=== PATIENT | female | born 1955 | race Caucasian/White ===

== ENCOUNTER 2025-03-15 16:32 | Inpatient (IN) ==
[2025-03-15 17:14] LABS: Hematocrit (blood only) 46.7 % (37.0-47.0); Hemoglobin 16.5 g/dl (12.0-16.0); Immature Granulocytes # (auto) 0.08 K/uL (0.01-0.20); Immature Granulocytes % (auto) 0.5 %; Mean Corpuscular Hemoglobin 29.0 pg (25.0-34.0); Mean Corpuscular Volume 82.2 fL (80.0-100.0); Platelet Count 357 K/uL (130-400); RDW Standard Deviation 36.0 fL (36.4-46.3); Red Blood Count 5.68 M/uL (4.20-5.40); White Blood Count 16.97 K/ul (4.8-10.8)
[2025-03-15 17:41] LABS: Alanine Aminotransferase 22.0 U/L (7-52); Albumin Globulin Ratio 1.0 (0.9-2); Albumin Level 4.0 gm/dl (3.4-5.0); Alkaline Phosphatase 131.0 U/L (34-104); Anion Gap 11.0 (3-11); Bilirubin,Total 0.7 mg/dl (0.2-1.0); Blood Urea Nitrogen 42.0 mg/dl (6-23); Calcium 10.0 mg/dl (8.6-10.3); Carbon Dioxide 42.0 mmol/L (21-32); Chloride 83.0 mmol/L (98-107); Creatinine Clr Calc Pharmacy 24.9 ml/min; Globulin 4.2 gm/dl (2.5-4.0); Glucose 151.0 mg/dl (70-99(Fasting)); Potassium 2.1 mmol/L (3.5-5.1); Sodium 136.0 mmol/L (136-145); Total Protein 8.2 gm/dl (6.0-8.3)
[2025-03-15 17:44] LABS: INR 1.0 (0.9-1.1); Partial Thromboplastin Time 22 Seconds (21-31); Prothrombin Time 10.4 Seconds (9.0-12.0)
[2025-03-15 18:03] LABS: Chlamydia pneumoniae PCR Not Detected (NotDetected); Coronavirus 229E PCR Not Detected (NotDetected); Coronavirus CoV-2 (COVID19)PCR Not Detected (NotDetected); Coronavirus HKU1 PCR Not Detected (NotDetected); Coronavirus NL63 PCR Not Detected (NotDetected); Coronavirus OC43PCR Not Detected (NotDetected); Human Metapneumovirus PCR Not Detected (NotDetected); Parainfluenza Virus 1 PCR Not Detected (NotDetected); Parainfluenza Virus 2 PCR Not Detected (NotDetected); Parainfluenza Virus 3 PCR Not Detected (NotDetected); Parainfluenza Virus 4 PCR Not Detected (NotDetected); Respiratory Syncytial VirusPCR Not Detected (NotDetected); Rhinovirus/Enterovirus PCR Not Detected (NotDetected)
--- NOTE | 2025-03-15 19:08 | XRay Report ---
Clinical History: Chest pain Technique: A frontal view of the chest was obtained Findings: There are no confluent pulmonary infiltrates. The heart size is within normal limits. No pleural effusion or pneumothorax is seen. There are suspected small calcified pulmonary granulomas No fracture is noted. There is thoracic degenerative disc disease Impression: No active disease Electronically signed by Robinson Patel 03-15-2025 7:08 PM
[2025-03-15] MEDS: SODIUM CHLORIDE 0.9% 1,000 ML IV ONE (19:36)
[2025-03-15] MEDS: POTASSIUM CHLORIDE / WTR 10 MEQ/100 ML PLCT IV SCH (19:36)
[2025-03-15] MEDS: POTASSIUM CHLORIDE CRTAB 20 MEQ TABCR PO STA (19:38)
--- NOTE | 2025-03-15 20:10 | Emergency Department Note ---
Impression & Plan Acute kidney injury, Hypokalemia, Acute dyspnea ED Provider Note NAME: DIANE CARLIN AGE: 69 SEX: F : 1955 ARRIVES VIA: Walk-In INFORMANT: Patient, ED PROVIDER(S): Binh Omalley MD CHIEF COMPLAINT: Diarrhea, shortness of breath HPI: This is a 69-year-old female presents for shortness of breath and diarrhea. Patient has shortness of breath over the past 1 month, intermittently. She notes this is fairly improving over the past few days but occasionally has shortness of breath. No chest pain at this time. No pleurisy. She does have exertional symptoms. She has noted constipation previously and took mag citrate over the past few days. She has been drinking copious bouts of water, Gatorade potassium supplementation over the past 1 to 2 weeks. She reports no nausea or vomiting. ROS: See above HPI for pertinent positives & negatives. A total of 10 systems reviewed and were otherwise negative. PAST MEDICAL HISTORY: See Below PAST SURGICAL HISTORY: See Below FAMILY HISTORY: See Below SOCIAL HISTORY: See Below HOME MEDICATIONS: See Below ALLERGIES: See Below VITALS: See Below PHYSICAL EXAMINATION: General: resting comfortably in no acute distress Head: Normocephalic and atraumatic Eyes: Normal inspection, extraocular muscles intact Ear, nose, throat: Normal external exam Neck: Normal range of motion Respiratory: lungs clear to auscultation bilaterally Cardiovascular: Regular rate/rhythm, no murmur GI: soft, nontender, no guarding or rebound Extremities: nontender, moves all extremities Neuro: The patient awake and alert, appropriately conversive, no focal deficits, symmetric faces Skin: Warm, dry, and intact MEDICAL DECISION MAKING: This is a 69-year-old female present for shortness of breath and diarrhea. Patient has shortness of breath but is since improving. Patient noted recent change in her blood pressure medication. She otherwise has been drinking water, Gatorade and supplementation. She notes diarrhea after taking magnesium citrate. -Chest Xray independently interpreted by me showing no pneumothorax, focal opacity, or pleural effusions. - Blood was ordered at triage. This shows leukocytosis to almost 17. She has a creatinine elevation 2.15, previous baseline is 1.1. Calcium is critical low at 2.1 she also has an elevated CO2. Troponin negative - Patient otherwise appears clinically well on physical exam, no significant tenderness, does not appear septic. - Will replete fluids, potassium. - Care discussed with Dr. Izquierdo for admission, hypokalemia, rehydration, PARRIS Differential diagnosis: Pneumonia, CHF, PARRIS, dehydration, gastroenteritis Diagnostics interpreted by me: ECG: None Cardiac Monitoring: An order was placed for continuous cardiac monitoring. The monitor shows a rate of 70 with sinus rhythm. Past Med/Surg History Problem List (Updated 03/15/25 @ 20:47 by Binh Omalley MD) Acute dyspnea (Acute) Hypokalemia (Acute) Acute kidney injury (Acute) Social History Smoking Status: Never smoker Preferred Language: Italian Feels Safe at Home: Yes Results & Data (ED) Vital Signs Vital Signs - 24 hr 03/15/25 16:36 03/15/25 19:26 03/15/25 19:26 Temperature 36.3 C L Temperature Source Oral Pulse Rate 79 84 Pulse Rate [Apical] 82 Pulse Rhythm Regular Pulse Rhythm [Apical] Regular Respiratory Rate 18 20 20 Respiratory Effort / Characteristics Non-Labored Spontaneous Non-Labored Respiratory Depth Normal Normal Respiratory Pattern Regular Regular Blood Pressure 160/79 H Blood Pressure [Left Arm] 146/96 H Blood Pressure Mean 106 Blood Pressure Mean [Left Arm] 112 Pulse Oximetry 94 94 92 Oxygen Delivery Method Room Air Room Air Oxygen Flow Rate Sepsis Recent Fever Within 48 Hours No Sepsis New/Unexplained Change in Mental Status No Sepsis Action Taken by Nursing No Action Required 03/15/25 19:28 03/15/25 20:16 Temperature Temperature Source Pulse Rate 70 Pulse Rate [Apical] Pulse Rhythm Pulse Rhythm [Apical] Respiratory Rate Respiratory Effort / Characteristics Respiratory Depth Respiratory Pattern Blood Pressure Blood Pressure [Left Arm] Blood Pressure Mean Blood Pressure Mean [Left Arm] Pulse Oximetry 95 Oxygen Delivery Method Room Air Oxygen Flow Rate 0 Sepsis Recent Fever Within 48 Hours Sepsis New/Unexplained Change in Mental Status Sepsis Action Taken by Nursing Laboratory Data 03/15/25 17:00 03/15/25 17:00 Lab Results 03/15/25 03/15/25 Range/Units 17:00 Unknown WBC 16.97 H (4.8-10.8) K/ul RBC 5.68 H (4.20-5.40) M/uL Hgb 16.5 H (12.0-16.0) g/dl Hct 46.7 (37.0-47.0) % MCV 82.2 (80.0-100.0) fL MCH 29.0 (25.0-34.0) pg MCHC 35.3 (32.0-36.0) g/dL RDW Std Deviation 36.0 L (36.4-46.3) fL RDW Coeff of Lakesha 12.0 (11.5-14.5) % Plt Count 357 (130-400) K/uL MPV 12.1 (9.4-12.4) fL Immature Gran % (Auto) 0.5 % Neut % (Auto) 78.3 % Lymph % (Auto) 12.9 % [place] % (Auto) 7.7 % Eos % (Auto) 0.2 % Baso % (Auto) 0.4 % Neut # (Auto) 13.31 H (1.40-6.50) K/uL Lymph # (Auto) 2.19 (1.20-3.40) K/uL [place] # (Auto) 1.30 H (0.11-0.59) K/uL Eos # (Auto) 0.03 (0.00-0.50) K/uL Baso # (Auto) 0.06 (0.00-0.20) K/uL Immature Gran # (Auto) 0.08 (0.01-0.20) K/uL PT 10.4 (9.0-12.0) Seconds INR 1.0 (0.9-1.1) APTT 22 (21-31) Seconds PTT Ratio 0.8 Sodium 136 (136-145) mmol/L Potassium 2.1 L* (3.5-5.1) mmol/L Chloride 83 L (98-107) mmol/L Carbon Dioxide 42 H* (21-32) mmol/L Anion Gap 11 (3-11) BUN 42 H (6-23) mg/dl Creatinine 2.15 H (0.6-1.2) mg/dl Est Cr Clr Drug Dosing 24.9 ml/min eGFR 24.04 BUN/Creatinine Ratio 19.5 (10-20) Glucose 151 H (70-99(Fasting)) mg/dl Calcium 10.0 (8.6-10.3) mg/dl Total Bilirubin 0.7 (0.2-1.0) mg/dl AST 29 (13-39) U/L ALT 22 (7-52) U/L Alkaline Phosphatase 131 H (34-104) U/L Troponin I High Sens 12.4 (0-14) pg/ml Total Protein 8.2 (6.0-8.3) gm/dl Albumin 4.0 (3.4-5.0) gm/dl Globulin 4.2 H (2.5-4.0) gm/dl Albumin/Globulin Ratio 1.0 (0.9-2) Adenovirus (PCR) Not Detected (NotDetected) B. pertussis DNA (PCR) Not Detected (NotDetected) B.parapertussis DNA PCR Not Detected (NotDetected) C. pneumoniae DNA (PCR) Not Detected (NotDetected) Coronavirus OC43 (PCR) Not Detected (NotDetected) Coronavirus HKU1 (PCR) Not Detected (NotDetected) Coronavirus 229E (PCR) Not Detected (NotDetected) SARS-CoV-2 (PCR) Not Detected (NotDetected) Coronavirus NL63 (PCR) Not Detected (NotDetected) Human Metapneumovir PCR Not Detected (NotDetected) Influenza Type A (PCR) Not Detected (NotDetected) Influenza Type B (PCR) Not Detected (NotDetected) M. pneumoniae (PCR) Not Detected (NotDetected) Parainfluenza 1 (PCR) Not Detected (NotDetected) Parainfluenza 2 (PCR) Not Detected (NotDetected) Parainfluenza 3 (PCR) Not Detected (NotDetected) Parainfluenza 4 (PCR) Not Detected (NotDetected) RSV (PCR) Not Detected (NotDetected) Entero/Rhino (PCR) Not Detected (NotDetected) Administered Medications Potassium Chloride (K Steve / Wtr) 10 meq in 100 mls @ 100 mls/hr IV Q1H JIL Stop: 03/15/25 23:14 Last Admin: 03/15/25 19:36 Dose: 100 mls/hr Documented By: FG Discontinued Medications Sodium Chloride (Nss) 1,000 mls @ 999 mls/hr IV .Q1H1M ONE Stop: 03/15/25 20:15 Last Admin: 03/15/25 19:36 Dose: 999 mls/hr Documented By: IRENE Potassium Chloride (Potassium Chloride Crtab 20 Meq Tabcr) 40 meq PO NOW STA Stop: 03/15/25 19:16 Last Admin: 03/15/25 19:38 Dose: 40 meq Documented By: IRENE Imaging Data Radiologist's Impression: Chest X-Ray 03/15/25 16:43 Clinical History: Chest pain Technique: A frontal view of the chest was obtained Findings: There are no confluent pulmonary infiltrates. The heart size is within normal limits. No pleural effusion or pneumothorax is seen. There are suspected small calcified pulmonary granulomas No fracture is noted. There is thoracic degenerative disc disease Impression: No active disease Electronically signed by Robinson Patel 03-15-2025 7:08 PM Discharge Plan Visit Data Chief Complaint: Shortness of Breath/Dyspnea Stated Complaint: SOB, HEART PALPS, NAUSEA, NO CHEST PAIN, ~5 DAYS ED Provider: Binh Omalley Discharge Problem: Acute kidney injury, Hypokalemia, Acute dyspnea Patient Disposition: Admitted As Inpatient Condition: Fair Forms Stand Alone Forms: My [facility], Important Visit Information Referrals Referrals: PCP,NO [Primary Care Provider] -
[2025-03-15] MEDS ORDERED: POLYETHYLENE (MIRALAX) 17 GM PACK PO PRN (21:57)
[2025-03-15] MEDS ORDERED: LABETALOL HCL IV 5 MG/ML 20ML IV PRN (21:57)
[2025-03-15] MEDS ORDERED: NITROGLYCERIN SL 0.4 MG/TAB TAB SL PRN (21:57)
--- NOTE | 2025-03-15 22:30 | History & Physical Report ---
Date of Service March 15, 2025 Assessment & Plan (1) KRAUSE (dyspnea on exertion): Plan: 69-year-old female with past med history significant for dyslipidemia, GERD, CKD stage III, mood disorder presents with dyspnea on exertion. About 6 weeks ago patient was in [place] when she woke up with shortness of breath in the night. Since last 4 weeks she was having dyspnea on exertion. Patient says symptoms were thought to be from elevated blood pressure. End of December she was placed on amlodipine for blood pressure which was increased to 10 mg daily. But patient developed lower extremity edema and amlodipine was stopped and hydrochlorothiazide was prescribed about a couple of weeks ago. Patient had constipation. On Wednesday and Wednesday she used mag citrate. After couple of days of mag citrate she had a bowel movement. Initially there was some blood in the stools but then the stools were okay. She also drinking a lot of Gatorade and liquids while she was using mag citrate. But as she was feeling weak and tired and continued to have short of breath on exertion she came to the ER today. In the ER she was found to have PARRIS and hypokalemia. Currently denies any headache. No runny nose or sore throat. No fevers. No cough. Denies any master st pain. No nausea. No abdominal pain. Micturating less amounts as per patient. Lower extremity edema has improved. Patient states last night she had palpitations. Patient states lately her hearing is somewhat decreased. Patient states after taking hydrochlorothiazide her blood pressure is improved to 180s as per patient. In the ER her systolic blood pressure in 160s and 140s. Dyspnea on exertion Probably from uncontrolled blood pressure Chest x-ray okay and no lower extremity edema Will follow D-dimer Will follow in telemetry Will follow echo Will follow serial enzymes Consult cardiology in a.m. Hypokalemia and PARRIS History of CKD stage III Possibly from hydrochlorothiazide Potassium 2.1 and creatinine of 2.1 Baseline creatinine 1.1 Holding hydrochlorothiazide Replacing potassium and giving fluids Will follow repeat labs Elevated blood pressure Holding hydrochlorothiazide IV labetalol as needed for now Close monitor Hyperlipidemia On statin? Mood disorder On venlafaxine DVT prophylaxis Heparin subcu Disposition Telemetry Full code History of Present Illness Chief Complaint: Dyspnea on exertion Primary Care Provider: NO PCP 69-year-old female with past med history significant for dyslipidemia, GERD, CKD stage III, mood disorder presents with dyspnea on exertion. About 6 weeks ago patient was in [place] when she woke up with shortness of breath in the night. Since last 4 weeks she was having dyspnea on exertion. Patient says symptoms were thought to be from elevated blood pressure. End of December she was placed on amlodipine for blood pressure which was increased to 10 mg daily. But patient developed lower extremity edema and amlodipine was stopped and hydrochlorothiazide was prescribed about a couple of weeks ago. Patient had constipation. On Wednesday and Wednesday she used mag citrate. After couple of days of mag citrate she had a bowel movement. Initially there was some blood in the stools but then the stools were okay. She also drinking a lot of Gatorade and liquids while she was using mag citrate. But as she was feeling weak and tired and continued to have short of breath on exertion she came to the ER today. In the ER she was found to have PARRIS and hypokalemia. Currently denies any headache. No runny nose or sore throat. No fevers. No cough. Denies any chest pain. No nausea. No abdominal pain. Micturating less amounts as per patient. Lower extremity edema has improved. Patient states last night she had palpitations. Patient states lately her hearing is somewhat decreased. Patient states after taking hydrochlorothiazide her blood pressure is improved to 180s as per patient. In the ER her systolic blood pressure in 160s and 140s. Past medical history. As mentioned above. Past surgical history. Colonoscopy. Diagnostic laparoscopy. Cholecystectomy. Ultrasonic guided right breast biopsy. Social history. . No smoking. Alcohol rarely. No drug use. Family history. Maternal aunt had breast cancer. Mother had heart disorder. Half sister had breast cancer. Father had brain tumor. PE. Stroke. Maternal grandmother had cancer. Allergies Allergy/AdvReac Type Severity Reaction Status Date / Time No Known Allergies Allergy Unverified 03/15/25 23:35 Home Medications Medication Instructions Recorded Confirmed Type hydrochlorothiazide 25 mg tablet 25 mg PO DAILY 03/15/25 03/15/25 History venlafaxine 37.5 mg 37.5 mg PO DAILY PRN Depression 03/15/25 03/15/25 History capsule,extended release 24 hr venlafaxine 75 mg capsule,extended 75 mg PO DAILY 03/15/25 03/15/25 History release 24 hr Past Med/Surg History Problem List (Updated 03/15/25 @ 22:41 by Clark Izquierdo MD) KRAUSE (dyspnea on exertion) Acute dyspnea (Acute) Hypokalemia (Acute) Acute kidney injury (Acute) Social History Smoking Status: Never smoker Second Hand Exposure: No; Do You Dip or Chew Tobacco: No; Tobacco Cessation Education Requested by Patient: No Hx Alcohol Use: Yes Alcohol type: wine Hx Substance Use: No Preferred Language: Lithuanian Communication Ability: Effective Attending Anesthesiologist Required: No Beliefs That Will Affect Care: None Current Living Situation: Alone Other Information That Helps Us Care for You: No Feels Safe at Home: Yes Safety Concerns: Feels Safe At This Time Assistive Devices: None Review of Systems Review of Systems: All systems reviewed & are unremarkable except as noted in HPI & below Physical Exam Physical Exam: General- Not in distress Head- atraumatic Eyes- PERRL,. Ears. Clear ENT- oropharynx clear Neck- supple, no JVD. Lungs- clear to auscultation no wheezing or crackles Heart- regular rhythm; no murmur, no gallop. Abdomen- normal bowel sounds, soft, nontender, no distension Extremities- no pretibial edema, no erythema seen Neuro- alert, oriented PERRL, no facial palsy; no dysarthria; moves extremities Results & Data Results & Data Vital Signs (Past 12 Hours) Vital Signs Temp Pulse Pulse Resp BP BP Pulse Ox 03/15/25 20:16 70 03/15/25 19:28 95 03/15/25 19:26 84 20 92 03/15/25 19:26 82 20 146/96 H 94 03/15/25 16:36 36.3 C L 79 18 160/79 H 94 O2 Del Method O2 Flow Rate 03/15/25 20:16 03/15/25 19:28 Room Air 0 03/15/25 19:26 Room Air 03/15/25 19:26 03/15/25 16:36 Room Air Diagnostic Findings Laboratory Results WBC 16.97 K/ul (4.8-10.8) H 03/15/25 17:00 RBC 5.68 M/uL (4.20-5.40) H 03/15/25 17:00 Hgb 16.5 g/dl (12.0-16.0) H 03/15/25 17:00 Hct 46.7 % (37.0-47.0) 03/15/25 17:00 MCV 82.2 fL (80.0-100.0) 03/15/25 17:00 MCH 29.0 pg (25.0-34.0) 03/15/25 17:00 MCHC 35.3 g/dL (32.0-36.0) 03/15/25 17:00 RDW Std Deviation 36.0 fL (36.4-46.3) L 03/15/25 17:00 RDW Coeff of Lakesha 12.0 % (11.5-14.5) 03/15/25 17:00 Plt Count 357 K/uL (130-400) 03/15/25 17:00 MPV 12.1 fL (9.4-12.4) 03/15/25 17:00 Immature Gran % (Auto) 0.5 % 03/15/25 17:00 Neut % (Auto) 78.3 % 03/15/25 17:00 Lymph % (Auto) 12.9 % 03/15/25 17:00 [place] % (Auto) 7.7 % 03/15/25 17:00 Eos % (Auto) 0.2 % 03/15/25 17:00 Baso % (Auto) 0.4 % 03/15/25 17:00 Neut # (Auto) 13.31 K/uL (1.40-6.50) H 03/15/25 17:00 Lymph # (Auto) 2.19 K/uL (1.20-3.40) 03/15/25 17:00 [place] # (Auto) 1.30 K/uL (0.11-0.59) H 03/15/25 17:00 Eos # (Auto) 0.03 K/uL (0.00-0.50) 03/15/25 17:00 Baso # (Auto) 0.06 K/uL (0.00-0.20) 03/15/25 17:00 Immature Gran # (Auto) 0.08 K/uL (0.01-0.20) 03/15/25 17:00 PT 10.4 Seconds (9.0-12.0) 03/15/25 17:00 INR 1.0 (0.9-1.1) 03/15/25 17:00 APTT 22 Seconds (21-31) 03/15/25 17:00 PTT Ratio 0.8 03/15/25 17:00 Sodium 136 mmol/L (136-145) 03/15/25 17:00 Potassium 2.1 mmol/L (3.5-5.1) L* 03/15/25 17:00 Chloride 83 mmol/L (98-107) L 03/15/25 17:00 Carbon Dioxide 42 mmol/L (21-32) H* 03/15/25 17:00 Anion Gap 11 (3-11) 03/15/25 17:00 BUN 42 mg/dl (6-23) H 03/15/25 17:00 Creatinine 2.15 mg/dl (0.6-1.2) H 03/15/25 17:00 Est Cr Clr Drug Dosing 24.9 ml/min 03/15/25 17:00 eGFR 24.04 03/15/25 17:00 BUN/Creatinine Ratio 19.5 (10-20) 03/15/25 17:00 Glucose 151 mg/dl (70-99(Fasting)) H 03/15/25 17:00 Calcium 10.0 mg/dl (8.6-10.3) 03/15/25 17:00 Total Bilirubin 0.7 mg/dl (0.2-1.0) 03/15/25 17:00 AST 29 U/L (13-39) 03/15/25 17:00 ALT 22 U/L (7-52) 03/15/25 17:00 Alkaline Phosphatase 131 U/L (34-104) H 03/15/25 17:00 Troponin I High Sens 12.4 pg/ml (0-14) 03/15/25 17:00 Total Protein 8.2 gm/dl (6.0-8.3) 03/15/25 17:00 Albumin 4.0 gm/dl (3.4-5.0) 03/15/25 17:00 Globulin 4.2 gm/dl (2.5-4.0) H 03/15/25 17:00 Albumin/Globulin Ratio 1.0 (0.9-2) 03/15/25 17:00 Adenovirus (PCR) Not Detected (NotDetected) 03/15/25 Unknown B. pertussis DNA (PCR) Not Detected (NotDetected) 03/15/25 Unknown B.parapertussis DNA PCR Not Detected (NotDetected) 03/15/25 Unknown C. pneumoniae DNA (PCR) Not Detected (NotDetected) 03/15/25 Unknown Coronavirus OC43 (PCR) Not Detected (NotDetected) 03/15/25 Unknown Coronavirus HKU1 (PCR) Not Detected (NotDetected) 03/15/25 Unknown Coronavirus 229E (PCR) Not Detected (NotDetected) 03/15/25 Unknown SARS-CoV-2 (PCR) Not Detected (NotDetected) 03/15/25 Unknown Coronavirus NL63 (PCR) Not Detected (NotDetected) 03/15/25 Unknown Human Metapneumovir PCR Not Detected (NotDetected) 03/15/25 Unknown Influenza Type A (PCR) Not Detected (NotDetected) 03/15/25 Unknown Influenza Type B (PCR) Not Detected (NotDetected) 03/15/25 Unknown M. pneumoniae (PCR) Not Detected (NotDetected) 03/15/25 Unknown Parainfluenza 1 (PCR) Not Detected (NotDetected) 03/15/25 Unknown Parainfluenza 2 (PCR) Not Detected (NotDetected) 03/15/25 Unknown Parainfluenza 3 (PCR) Not Detected (NotDetected) 03/15/25 Unknown Parainfluenza 4 (PCR) Not Detected (NotDetected) 03/15/25 Unknown RSV (PCR) Not Detected (NotDetected) 03/15/25 Unknown Entero/Rhino (PCR) Not Detected (NotDetected) 03/15/25 Unknown Impressions Chest X-Ray 03/15/25 16:43 Clinical History: Chest pain Technique: A frontal view of the chest was obtained Findings: There are no confluent pulmonary infiltrates. The heart size is within normal limits. No pleural effusion or pneumothorax is seen. There are suspected small calcified pulmonary granulomas No fracture is noted. There is thoracic degenerative disc disease Impression: No active disease Electronically signed by Robinson Patel 03-15-2025 7:08 PM Code Status & VTE Plan VTE Prophylaxis Plan VTE Prophylaxis will be ordered: Yes
[2025-03-16] MEDS: POTASSIUM CHLORIDE CRTAB 20 MEQ TABCR PO ONE (00:12)
[2025-03-16] MEDS: HEPARIN SOD 5,000 UNIT/0.5 ML VIAL SQ SCH (00:12)
[2025-03-16] MEDS: SODIUM CHLOR 0.45% + 20MEQ KCL 20 MEQ/1,000 ML BAG IV SCH (00:12)
[2025-03-16 05:59] LABS: Hematocrit (blood only) 39.1 % (37.0-47.0); Hemoglobin 13.3 g/dl (12.0-16.0); Immature Granulocytes # (auto) 0.06 K/uL (0.01-0.20); Immature Granulocytes % (auto) 0.5 %; Mean Corpuscular Hemoglobin 28.5 pg (25.0-34.0); Mean Corpuscular Volume 83.9 fL (80.0-100.0); Platelet Count 255 K/uL (130-400); RDW Standard Deviation 37.3 fL (36.4-46.3); Red Blood Count 4.66 M/uL (4.20-5.40); White Blood Count 11.87 K/ul (4.8-10.8)
[2025-03-16 06:14] LABS: Anion Gap 9.0 (3-11); Blood Urea Nitrogen 44.0 mg/dl (6-23); Calcium 8.6 mg/dl (8.6-10.3); Carbon Dioxide 37.0 mmol/L (21-32); Chloride 91.0 mmol/L (98-107); Creatinine Clr Calc Pharmacy 31.3 ml/min; Glucose 105.0 mg/dl (70-99(Fasting)); Magnesium 3.0 mg/dl (1.7-2.4); Potassium 2.8 mmol/L (3.5-5.1); Sodium 137.0 mmol/L (136-145)
[2025-03-16] MEDS ORDERED: POTASSIUM CHLORIDE 40 MEQ in SODIUM CHLORIDE 0.9% 1,000 ML IV SCH (07:45)
[2025-03-16] MEDS: POTASSIUM CHLORIDE CRTAB 20 MEQ TABCR PO STA (08:02)
[2025-03-16] MEDS: POTASSIUM CHLORIDE / WTR 10 MEQ/100 ML PLCT IV SCH (08:04)
[2025-03-16] MEDS: POTASSIUM CHLORIDE CRTAB 20 MEQ TABCR PO SCH (08:32)
[2025-03-16] MEDS: SODIUM CHLORIDE 0.9% 500 ML IV SCH (08:33)
[2025-03-16] MEDS: VENLAFAXINE HCL XR 75 MG CAPXR PO SCH (08:34)
--- NOTE | 2025-03-16 08:58 | Cardiology Consultation ---
Date of Consultation March 16, 2025 Assessment & Plan (1) KRAUSE (dyspnea on exertion): (2) Hypokalemia: (3) Acute kidney injury: (4) HTN, goal below 130/80: (5) Dyslipidemia, goal LDL below 70: (6) Aortic atherosclerosis: Plan 69-year-old female presenting with concern regarding progressive exertional dyspnea, change in exercise tolerance, uncontrolled hypertension. Recent addition of HCTZ noted with laboratory work on presentation revealing acute on chronic kidney injury, marked hypokalemia. EKG with nonspecific STT wave abnormality, prolonged QTc. High-sensitivity troponin negative x 2. Preliminary resting echocardiography with preserved LV systolic function without regional wall motion abnormality. Options of management discussed Recommendations: * Fluid resuscitation * Supplement potassium orally. * Discontinue HCTZ * Repeat EKG today, daily * Avoid QTc prolonging medications * Continue telemetry * Add carvedilol 3.125 mg BID for additional blood pressure control * Add aspirin 81 mg/day * Add statin, atorvastatin 40 mg/day (LDL cholesterol 158-180 via outpatient labs over the last 5 years) * Pharmacological stress testing once above addressed, corrected. * Refer for a bilateral lower extremity venous duplex, VQ scan, RE: Dyspnea, elevated D-dimer * Non-contrast CT of the chest * Outpatient evaluation for suspected obstructive sleep apnea Supervising Physician Co-Signing Physician Notes Patient seen and examined. Past medical history, surgical history, social history and family history have been reviewed. The medical record and all the above studies have been reviewed. Case DW KALIA including management. As per patient she has been taking lactulose and magnesium citrate for constipation prior to admission Hypokalemia PARRIS HTN HLD ECHO 06/16/24 - LVEF -55-60%, LVDD Grade I ASA 81mg po daily Statin Coreg DC HCTZ increase fluid intake correct and f/u electrolytes f/u renal function adjust anti-HTN meds keeping systolic BP between 100-140 mmHg and HR between 60 and 100 BPM avoid hypovolemia keep patient euvolemic DVT prophylaxis keep LE elevated when sitting strict I&Os salt restriction counseling f/u in cardiology clinic post discharge further cardiac w/u as OP as indicated after medical optimization History of Present Illness Reason for Consultation: Dyspnea on exertion. Hypertensive urgency Requesting Physician: [facility] Hospitalist Service, Dr. Izquierdo Attending Physician: [facility] Hospitalist Service, Dr. Jason Rosas MD History of Present Illness Soledad Webster is a 69-year-old female who presented to the [facility] ER in March 15, 2025 with complaints of exertional shortness of breath and diarrhea. Patient describes experiencing issues since November 2024, increased stressors (works at [employer], 44 year old boss had a CVA circa 6 weeks ago, daughter owns and patient works at the [employer] in [facility], wnvstzs-ce-vau recently had valve surgery at [facility] and needs to go in for another surgery, sister in [place] recently had cardiac issues, etc.) and observed hypertension. Patient notes evaluation by PCP in December, prescribed buspirone for anxiety which was not well-tolerated and amlodipine for hypertension which resulted in significant fluid retention necessitating discontinuation. Hydrochlorothiazide 25 mg/day prescribed about two weeks ago. Following addition of HCTZ patient experienced constipation necessitating use of an unknown laxative then mag citrate. Patient describes exertional dyspnea over the past 6 weeks with normal activity, change in exercise tolerance. She denies chest pain, tightness, pressure, discomfort, etc. She denies prior cardiac history other than having a possible heart murmur as a child. 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 She notes concern regarding possible underlying obstructive sleep apnea, twin sister with the same. Laboratory work upon presentation revealed multiple abnormalities including leukocytosis (16.97), elevated hemoglobin (16.5), marked hypokalemia with a potassium of 2.1. Bicarb was 42. Chloride 83. BUN 42. Creatinine 2.15 which is up from a baseline of 1.0-1.2 mg/dL. EKG on presentation revealed sinus rhythm at 76 bpm with possible left atrial enlargement, voltage criteria for LVH, nonspecific STT wave abnormality, and a prolonged QTc of 555 ms. High- sensitivity troponin negative x 2, 12.4 then 10.9 pg/mL. Chest x-ray without acute cardiopulmonary findings. Blood pressure on presentation was 160/79. Inpatient telemetry monitoring benign thus far Past Medical and Surgical History Chronic kidney disease Hypertension Dyslipidemia GERD Unspecified polyarteritis Diverticulosis Status post cholecystectomy Status post right breast biopsy, benign Family History: Mother with CHF at 84. Father with a brain tumor at 49. Twin sister without cardiac issues. 2 brothers without cardiac issues. 1 older sister, lives in [place], with recent cardiac issues, status post? Direct-current cardioversion Social History: Never smoker. No smokeless tobacco. Alcohol: 2 drinks per week. No illegal/illicit drug use. Works full-time at [employer], part-time at the [employer] in [facility]. . Allergies Allergy/AdvReac Type Severity Reaction Status Date / Time No Known Allergies Allergy Unverified 03/15/25 23:35 Home Medications Medication Instructions Recorded Confirmed Type hydrochlorothiazide 25 mg tablet 25 mg PO DAILY 03/15/25 03/15/25 History venlafaxine 37.5 mg 37.5 mg PO DAILY PRN Depression 03/15/25 03/15/25 History capsule,extended release 24 hr venlafaxine 75 mg capsule,extended 75 mg PO DAILY 03/15/25 03/15/25 History release 24 hr Patient History Social History Smoking Status: Never smoker Second Hand Exposure: No; Do You Dip or Chew Tobacco: No; Tobacco Cessation Education Requested by Patient: No Hx Alcohol Use: Yes Alcohol type: wine Hx Substance Use: No Preferred Language: Colombian Communication Ability: Effective Coremaker Bench Required: No Beliefs That Will Affect Care: None Current Living Situation: Alone Other Information That Helps Us Care for You: No Feels Safe at Home: Yes Safety Concerns: Feels Safe At This Time Assistive Devices: None Review of Systems Review of Systems: Complete Review of Systems: Constitutional: No fevers, chills, or night sweats. HEENT: Glasses. Early cataracts. No macular degeneration. No glaucoma. No amaurosis fugax. Pulmonary: Denies history of asthma, emphysema, or COPD. No history of PE. Cardiac: Heart murmur as a child. Denies history of CAD, ME, CHF, arrhythmia, rheumatic fever, or scarlet fever. GI/Abd: Recent constipation, taking an unknown laxative then mag citrate. GERD. No dysphagia. No melena or hematochezia. CKD. Hepatic steatosis. No history of pancreatic issues. Vascular: No history of carotid artery disease, AAA, or lower extremity claudication/PAD. Hematologic: No coagulation disorder, anemia, or abnormal bleeding. Musculoskeletal: Arthritis. Skin: No rash. No tick bites. Neurologic: No history of TIA/CVA, or seizure disorder. Endocrine: Denies history of diabetes mellitus. Denies thyroid trouble. Complete Review of Systems is as stated above, negative, or noncontributory Physical Exam Physical Exam: General: A&Ox3. NAD. HENT: Normocephalic. Atraumatic. Eyes: PER. Conjunctiva pink, sclera clear. Neck: No carotid bruits. No JVD. No HJR. Heart: RRR. Grade I-II/ systolic murmur. No diastolic murmur. No rub. No gallop. PMI is nondisplaced. Lungs: Diminished. Clear to auscultation. No wheeze. Abdomen: +BS. Soft. Nontender. No masses or organomegaly. Extremities: No clubbing, cyanosis, or edema. Limited neurological examination is without focal deficits. Pulses: Posterior tibial=2/4. Results & Data Vital Signs (Past 12 Hours) Vital Signs Temp Pulse Pulse Resp BP Pulse Ox O2 Del Method 03/16/25 08:15 36.9 C 70 19 144/73 H 92 Room Air 03/16/25 04:00 36.6 C 74 18 129/77 91 Room Air 03/15/25 22:21 82 03/15/25 22:00 36.7 C 72 18 119/67 93 Room Air 03/15/25 21:25 Room Air 03/15/25 21:00 71 15 149/107 H 100 Room Air Laboratory Results Cardiac Enzymes 03/15/25 03/16/25 Range/Units 17:00 05:25 AST 29 (13-39) U/L Troponin I High Sens 12.4 10.9 (0-14) pg/ml Coagulation 03/15/25 Range/Units 17:00 PT 10.4 (9.0-12.0) Seconds APTT 22 (21-31) Seconds CBC 03/15/25 03/16/25 Range/Units 17:00 05:25 WBC 16.97 H 11.87 H (4.8-10.8) K/ul RBC 5.68 H 4.66 (4.20-5.40) M/uL Hgb 16.5 H 13.3 D (12.0-16.0) g/dl Hct 46.7 39.1 (37.0-47.0) % Plt Count 357 255 (130-400) K/uL Neut # (Auto) 13.31 H 7.08 H (1.40-6.50) K/uL Lymph # (Auto) 2.19 3.24 (1.20-3.40) K/uL Woodson # (Auto) 1.30 H 1.12 H (0.11-0.59) K/uL Eos # (Auto) 0.03 0.28 (0.00-0.50) K/uL Baso # (Auto) 0.06 0.09 (0.00-0.20) K/uL Comprehensive Metabolic Panel 03/15/25 03/16/25 Range/Units 17:00 05:25 Sodium 136 137 (136-145) mmol/L Potassium 2.1 L* 2.8 L D (3.5-5.1) mmol/L Chloride 83 L 91 L (98-107) mmol/L Carbon Dioxide 42 H* 37 H (21-32) mmol/L BUN 42 H 44 H (6-23) mg/dl Creatinine 2.15 H 1.76 H D (0.6-1.2) mg/dl Glucose 151 H 105 H (70-99(Fasting)) mg/dl Calcium 10.0 8.6 (8.6-10.3) mg/dl AST 29 (13-39) U/L ALT 22 (7-52) U/L Alkaline Phosphatase 131 H (34-104) U/L Total Protein 8.2 (6.0-8.3) gm/dl Albumin 4.0 (3.4-5.0) gm/dl Intake and Output 03/15/25 03/16/25 03/16/25 22:59 06:59 14:59 Intake Total 1450 / 1900 450 / 1900 1093.750 / 1093.750 Balance 1450 / 1900 450 / 1900 1093.750 / 1093.750 Intake: IV 1200 / 1400 200 / 1400 1093.750 / 1093.750 Potassium Chloride / Wtr 10 meq 200 / 400 200 / 400 50 / 50 In 100 ml @ 100 mls/hr IV Q1H [facility] Rx#:[id number] Sodium Chlor 0.45% + 20Meq KCl 1043.750 / 1043.750 20 meq In 1,000 ml @ 125 mls/hr IV .Q8H [facility] Rx#:[id number] Sodium Chloride 0.9% 1,000 ml @ 1000 / 1000 999 mls/hr IV .Q1H1M [facility] Rx#: [id number] Oral 250 / 500 250 / 500 Other: Weight 89 kg 90.265 kg Weight Measurement Method [facility] in [facility] Built in [facility] Diagnostic Findings Telemetry: Sinus rhythm predominately in the 70's and 80's. Rare PVC. No atrial fibrillation. Medications Administered Home Medications Medication Instructions Recorded Confirmed Last Taken hydrochlorothiazide 25 mg tablet 25 mg PO DAILY 03/15/25 03/15/25 03/14/25 22:00 venlafaxine 37.5 mg 37.5 mg PO DAILY PRN Depression 03/15/25 03/15/25 03/15/25 09:00 capsule,extended release 24 hr venlafaxine 75 mg capsule,extended 75 mg PO DAILY 03/15/25 03/15/25 03/15/25 09:00 release 24 hr Active Medications Generic Name Dose Route Start Last Admin Trade Name Freq PRN Reason Stop Dose Admin Aspirin 81 mg 03/16/25 09:45 03/16/25 11:08 Aspirin 81 Mg Ectab PO 04/15/25 09:44 81 mg QAM [facility] Administration Heparin Sodium (Porcine) 5,000 units 03/15/25 22:00 03/16/25 13:42 Heparin Sod 5,000 Unit/0.5 Ml Vial SQ 04/14/25 21:59 5,000 units Q8 [facility] Administration Sodium Chloride 500 mls @ 125 mls/hr 03/16/25 07:45 03/16/25 13:41 Nss IV 03/16/25 19:44 125 mls/hr .Q4H [facility] Administration Potassium Chloride 40 meq 03/16/25 09:00 03/16/25 13:56 Potassium Chloride Crtab 20 Meq Tabcr PO 04/15/25 08:59 40 meq TID [facility] Administration Venlafaxine HCl 75 mg 03/16/25 09:00 03/16/25 08:34 Venlafaxine Hcl Xr 75 Mg Capxr PO 04/15/25 08:59 75 mg DAILY [facility] Administration PG Care Time/CCT Total # of Minutes Spent Total Time Spent with Patient: Total time spent is greater than 50% in coordination of care (as documented) at patient's floor/unit and/or counseling patient. I spent a total of 80 minutes on the date of service in preparation, delivery, and documentation of the care provided to this patient excluding any time spent in the performance of separately billed services. This visit was a split-shared visit with the substantive portion of the medical decision making performed by the supervising grain unloader machine/billing provider, Dr. Bernstein Coding Level of Care Code 67631 INT INP/OBS CARE 3/75MIN Diagnoses KRAUSE (dyspnea on exertion) R06.09 Hypokalemia E87.6 Acute kidney injury N17.9 HTN, goal below 130/80 I10 Dyslipidemia, goal LDL below 70 E78.5 Aortic atherosclerosis I70.0
--- NOTE | 2025-03-16 09:02 | XCELERA ---
[id number]
[2025-03-16] MEDS: ASPIRIN 81 MG ECTAB PO SCH (11:08)
--- NOTE | 2025-03-16 11:25 | Hospitalist Progress Note ---
Date of Service March 16, 2025 Assessment & Plan (1) KRAUSE (dyspnea on exertion): Plan: 69-year-old female with past med history significant for dyslipidemia, GERD, CKD stage III, mood disorder presents with dyspnea on exertion. About 6 weeks ago patient was in [place] when she woke up with shortness of breath in the night. Since last 4 weeks she was having dyspnea on exertion. Patient says symptoms were thought to be from elevated blood pressure. End of December she was placed on amlodipine for blood pressure which was increased to 10 mg daily. But patient developed lower extremity edema and amlodipine was stopped and hydrochlorothiazide was prescribed about a couple of weeks ago. Patient had constipation. On Wednesday and Wednesday she used mag citrate. After couple of days of mag citrate she had a bowel movement. Initially there was some blood in the stools but then the stools were okay. S In the ER she was found to have PARRIS and hypokalemia, and referred for admission Hypokalemia PARRIS History of CKD stage III Likely secondary from diarrhea and use of hydrochlorothiazide Serum potassium of 2.1 on admission with creatinine of 2.1; baseline creatinine of 1.1. Bicarb of 37 Continue IV fluids with normal saline at 125cc/hr, replete potassium levels Will follow-up BMP and replete as necessary. Stop hydrochlorothiazide; started on coreg. will likely benefit from adding ADRIANO-I or ARB as outpatient after creatinine normalized. Dyspnea on exertion Probably from uncontrolled blood pressure Chest x-ray- no acute findings D-dimer mildly elevated Echo shows normal EF; grade I Diastolic dysfunction Hypertension Holding hydrochlorothiazide started on coreg Hyperlipidemia started on statin Mood disorder On venlafaxine-continue DVT prophylaxis Heparin subcu Disposition Telemetry Full code Time spent evaluating patient, direct bedside care, chart review, placing orders, interpretation of diagnostic studies, discussion with consultants, patient, and family members, as well as other required patient management activities is 50 minutes Please note the above document was generated using voice recognition software. It may contain grammatical, syntax or spelling errors. Any formal questions or concerns about the content, text or information contained within the body of this dictation should be directly addressed to the provider for clarification Admission and Anticipated Discharge Date Admission Date: March 15, 2025 Subjective Patient seen and examined at bedside. She reports that she is feeling much better compared to previous day. She denies diarrhea at this time. Review of Systems Review of Systems: All systems reviewed & are unremarkable except as noted in Subjective Physical Exam Physical Exam: General- Not in distress Neck- supple, no JVD. Lungs- clear to auscultation no wheezing or crackles Heart- regular rhythm; no murmur, no gallop. Abdomen- normal bowel sounds, soft, nontender, no distension Extremities- no pretibial edema, no erythema seen Neuro- alert, oriented PERRL, no facial palsy; no dysarthria; moves extremities Results & Data Results & Data Vital Signs (Past 12 Hours) Vital Signs Temp Pulse Resp BP Pulse Ox O2 Del Method 03/16/25 11:13 36.3 C L 76 19 117/65 94 Room Air 03/16/25 08:15 36.9 C 70 19 144/73 H 92 Room Air 03/16/25 04:00 36.6 C 74 18 129/77 91 Room Air
--- NOTE | 2025-03-16 12:56 | Nuclear Medicine Report ---
NUCLEAR PULMONARY PERFUSION SCAN CLINICAL HISTORY: Dyspnea. Elevated d-dimer. COMPARISON STUDY: Chest x-ray dated 03/15/2025. TECHNIQUE: Nuclear pulmonary perfusion scan is performed following the IV administration of 5.5 mCi o f technetium 99m MAA. Images were acquired in the anterior, posterior, and oblique projections. FINDINGS: A chest x-ray performed 03/15/2025 shows mild bibasilar atelectasis. No airspace consolidation or ple ural effusion is seen. Perfusion of the lungs is heterogeneous. No large segmental perfusion defect is identified. A subsegm ental defect is questioned in the left upper lung on the posterior view. IMPRESSION: 1. Heterogeneous perfusion with no large segmental perfusion defects identified. 2. A subsegmental peripheral perfusion defect is suggested in the left lung on the posterior view onl y. If there is strong clinical concern for pulmonary embolus a CT angiogram of the chest should be ob tained. ACT 112: Negative or not required by law. Electronically signed by: Peewee Cazares M.D. 03/16/2025 12:54 PM
--- NOTE | 2025-03-16 13:13 | Ultrasound Report ---
ULTRASOUND BILATERAL LOWER EXTREMITY VENOUS CLINICAL HISTORY: Dyspnea. Clinical concern for deep venous thrombosis. Elevated d-dimer. COMPARISON STUDY: No priors TECHNIQUE: Real-time, grayscale, and color Doppler sonography of the deep veins of the right and left lower extremity was performed from the inguinal crease to the calf. Compression and augmentation wer e utilized. FINDINGS: There is no sonographic evidence of deep venous thrombosis identified in the right or left lower extremity. The common femoral, superficial femoral, and popliteal veins are patent and normally compressible bilaterally. The greater saphenous vein and the profunda femoris vein at the junction w ith the common femoral vein are clear in both legs. The visualized calf veins are patent bilaterally. A right-sided Marques's cyst measures 3.4 x 0.7 x 2.2 cm. IMPRESSION: 1. There is no sonographic evidence of deep venous thrombosis identified in the right or left lower e xtremity. 2. Right-sided Marques's cyst. ACT 112: Negative or not required by law. Electronically signed by: Peewee Cazares M.D. 03/16/2025 1:11 PM
--- NOTE | 2025-03-16 19:25 | Electrocardiogram Report ---
Test Reason : Blood Pressure : */* mmHG Vent. Rate : 79 BPM Atrial Rate : 79 BPM P-R Int : 162 ms QRS Dur : 78 ms QT Int : 424 ms P-R-T Axes : 50 -16 33 degrees QTcB Int : 487 ms Normal sinus rhythm Prolonged QT Abnormal ECG No previous ECGs available Confirmed by Wes Obando ([id number]) on 03/16/2025 7:24:54 PM Referred By: Yossi Miranda Confirmed By: Wes Obando
--- NOTE | 2025-03-16 19:25 | Electrocardiogram Report ---
Test Reason : Blood Pressure : */* mmHG Vent. Rate : 78 BPM Atrial Rate : 78 BPM P-R Int : 150 ms QRS Dur : 78 ms QT Int : 426 ms P-R-T Axes : 52 -21 30 degrees QTcB Int : 485 ms Normal sinus rhythm Prolonged QT Abnormal ECG When compared with ECG of 16-Mar-2025 10:23, No significant change was found Confirmed by Wse Obando ([id number]) on 03/16/2025 7:25:12 PM Referred By: Yossi Miranda Confirmed By: Wes Obando
[2025-03-17 06:38] LABS: Hematocrit (blood only) 37.9 % (37.0-47.0); Hemoglobin 12.3 g/dl (12.0-16.0); Immature Granulocytes # (auto) 0.05 K/uL (0.01-0.20); Immature Granulocytes % (auto) 0.6 %; Mean Corpuscular Hemoglobin 28.1 pg (25.0-34.0); Mean Corpuscular Volume 86.7 fL (80.0-100.0); Platelet Count 199 K/uL (130-400); RDW Standard Deviation 39.1 fL (36.4-46.3); Red Blood Count 4.37 M/uL (4.20-5.40); White Blood Count 9.03 K/ul (4.8-10.8)
[2025-03-17 07:04] LABS: Anion Gap 6.0 (3-11); Blood Urea Nitrogen 32.0 mg/dl (6-23); Calcium 8.9 mg/dl (8.6-10.3); Carbon Dioxide 30.0 mmol/L (21-32); Chloride 104.0 mmol/L (98-107); Creatinine Clr Calc Pharmacy 42.6 ml/min; Glucose 95.0 mg/dl (70-99(Fasting)); Potassium 3.5 mmol/L (3.5-5.1); Sodium 140.0 mmol/L (136-145)
[2025-03-17] MEDS: ATORVASTATIN 40 MG TAB PO SCH (09:05)
[2025-03-17] MEDS: SODIUM CHLORIDE 0.9% 1,000 ML IV SCH (10:53)
--- NOTE | 2025-03-17 11:33 | Discharge Summary ---
Date of Service March 17, 2025 Admission HPI Per Admitting Provider 69-year-old female with past med history significant for dyslipidemia, GERD, CKD stage III, mood disorder presents with dyspnea on exertion. About 6 weeks ago patient was in [place] when she woke up with shortness of breath in the night. Since last 4 weeks she was having dyspnea on exertion. Patient says symptoms were thought to be from elevated blood pressure. End of December she was placed on amlodipine for blood pressure which was increased to 10 mg daily. But patient developed lower extremity edema and amlodipine was stopped and hydrochlorothiazide was prescribed about a couple of weeks ago. Patient had constipation. On Wednesday and Wednesday she used mag citrate. After couple of days of mag citrate she had a bowel movement. Initially there was some blood in the stools but then the stools were okay. She also drinking a lot of Gatorade and liquids while she was using mag citrate. But as she was feeling weak and tired and continued to have short of breath on exertion she came to the ER today. In the ER she was found to have PARRIS and hypokalemia. Currently denies any headache. No runny nose or sore throat. No fevers. No cough. Denies any chest pain. No nausea. No abdominal pain. Micturating less amounts as per patient. Lower extremity edema has improved. Patient states last night she had palpitations. Patient states lately her hearing is somewhat decreased. Patient states after taking hydrochlorothiazide her blood pressure is improved to 180s as per patient. In the ER her systolic blood pressure in 160s and 140s. Past medical history. As mentioned above. Past surgical history. Colonoscopy. Diagnostic laparoscopy. Cholecystectomy. Ultrasonic guided right breast biopsy. Social history. . No smoking. Alcohol rarely. No drug use. Family history. Maternal aunt had breast cancer. Mother had heart disorder. Half sister had breast cancer. Father had brain tumor. PE. Stroke. Maternal grandmother had cancer. Discharge Data Allergies Allergy/AdvReac Type Severity Reaction Status Date / Time No Known Allergies Allergy Unverified 03/15/25 23:35 Consultations 03/15/25 19:21 ED Decision to Admit Stat 03/16/25 08:00 Consult Cardiology Routine Ordered Studies 03/16/25 09:40 US venous duplex leg [US venous doppler LE BI] Routine Hospital Course (1) KRAUSE (dyspnea on exertion): 69-year-old female with past med history significant for dyslipidemia, GERD, CKD stage III, mood disorder presents with dyspnea on exertion. About 6 weeks ago patient was in [place] when she woke up with shortness of breath in the night. Since last 4 weeks she was having dyspnea on exertion. Patient says symptoms were thought to be from elevated blood pressure. End of December she was placed on amlodipine for blood pressure which was increased to 10 mg daily. But patient developed lower extremity edema and amlodipine was stopped and hydrochlorothiazide was prescribed about a couple of weeks ago. Patient had constipation. On Wednesday and Wednesday she used mag citrate. After couple of days of mag citrate she had a bowel movement. Initially there was some blood in the stools but then the stools were okay. S In the ER she was found to have PARRIS and hypokalemia, and referred for admission Hypokalemia PARRIS History of CKD stage III Likely secondary from diarrhea and use of hydrochlorothiazide Serum potassium of 2.1 on admission with creatinine of 2.1; baseline creatinine of 1.1. Bicarb of 37 Continue IV fluids with normal saline at 125cc/hr, replete potassium levels Will follow-up BMP and replete as necessary. Stop hydrochlorothiazide; started on coreg. will likely benefit from adding ADRIANO-I or ARB as outpatient after creatinine normalized. Dyspnea on exertion Probably from uncontrolled blood pressure Chest x-ray- no acute findings D-dimer mildly elevated Echo shows normal EF; grade I Diastolic dysfunction Hypertension Holding hydrochlorothiazide started on coreg Hyperlipidemia started on statin Mood disorder On venlafaxine-continue DVT prophylaxis Heparin subcu Disposition Telemetry Full code Time spent evaluating patient, direct bedside care, chart review, placing orders, interpretation of diagnostic studies, discussion with consultants, patient, and family members, as well as other required patient management activities is 50 minutes Please note the above document was generated using voice recognition software. It may contain grammatical, syntax or spelling errors. Any formal questions or concerns about the content, text or information contained within the body of this dictation should be directly addressed to the provider for clarification Discharge Plan Discharge Items Patient Disposition: Home - Self-Care Reason For Visit: PARRIS, HYPOKALEMIA Discharge Diagnosis: PARRIS Hypokalemia Condition on Discharge: Fair Activity: Resume your previous activity Non-emergency contact: Primary Care Provider Call non-emergency contact if: you have any medication questions and your symptoms worsen Follow-up/Referrals: Krystal Vang PA-C [Primary Care Provider] - Diet: Regular Addtl Attending Provider Instructions: You were admitted to the hospital due to dehydration. You are given IV fluids with improvement in your kidney function. You were also evaluated by cardiology during the hospitalization. They recommend following medication changes; Stop taking hydrochlorothiazide. Start taking aspirin 81 mg Start taking Lipitor 40 mg once a day Start taking Coreg 3.125 twice a day for high blood pressure. Please continue to check your blood pressure at home and make a log of it. You might need adjustment to your medication regimen. Pending Studies at Discharge: No Stand-Alone Forms: My [facility] [employer], Smoking Cessation Medications and DC Order Prescriptions: New atorvastatin 40 mg Tablet 40 mg PO QAM Qty: 30 0RF aspirin 81 mg Tablet,Delayed Release (Dr/Ec) 81 mg PO QAM Qty: 30 0RF carvedilol 3.125 mg Tablet 3.125 mg PO BIDM Qty: 60 0RF Continued venlafaxine 37.5 mg capsule,extended release 24hr 37.5 mg PO DAILY PRN (Reason: Depression) Patient Comments: 03/15- pt states that she takes med in conjunction with 75mg Effexor as needed per her doctor venlafaxine 75 mg capsule,extended release 24hr 75 mg PO DAILY Discontinued hydrochlorothiazide 25 mg tablet 25 mg PO DAILY Admission Data Admit Date/Time: 03/15/25 20:38 Attending Provider: Jason Rosas Admit Provider: Clark Izquierdo Primary Care Provider: Krystal Vang Other Providers: Clark Izquierdo; Karina Noyola; Bj Mckeon; Wolf Larios; Sky Varela; Noah Aguayo; Yossi Snider; Bekah Palumbo; Elva Duarte; Allison Patel; Kartik Mendoza Ashley M.; Herber Navarrete; Paul Fisher; Domonique Guzman; Maryellen Martinez; Lizette Luna; May Koehler; Asaf Izaguirre; Simran Chambers; Sandra Piña; Bennie Velasquez; Rony Bernstein
[2025-03-17 16:15] LABS: Anion Gap 2.0 (3-11); Blood Urea Nitrogen 27.0 mg/dl (6-23); Calcium 9.2 mg/dl (8.6-10.3); Carbon Dioxide 31.0 mmol/L (21-32); Chloride 106.0 mmol/L (98-107); Creatinine Clr Calc Pharmacy 45.1 ml/min; Glucose 95.0 mg/dl (70-99(Fasting)); Potassium 4.3 mmol/L (3.5-5.1); Sodium 139.0 mmol/L (136-145)
[2025-03-17] MEDS ORDERED: OPTIRAY 320 125ml IV ONE (16:46)
--- NOTE | 2025-03-17 16:59 | Electrocardiogram Report ---
Test Reason : Blood Pressure : */* mmHG Vent. Rate : 76 BPM Atrial Rate : 76 BPM P-R Int : 148 ms QRS Dur : 86 ms QT Int : 494 ms P-R-T Axes : 11 -18 4 degrees QTcB Int : 555 ms Normal sinus rhythm Moderate voltage criteria for LVH, may be normal variant Nonspecific ST abnormality Prolonged QT Abnormal ECG No previous ECGs available Confirmed by Bennie Scanlon ([id number]) on 03/17/2025 4:58:53 PM Referred By: Yossi Miranda Confirmed By: Bennie Scanlon
[2025-03-17] MEDS: OPTIRAY 320 125ml IV ONE (17:00)
--- NOTE | 2025-03-17 17:51 | Cardiology Progress Note ---
Date of Service March 17, 2025 Assessment & Plan (1) KRAUSE (dyspnea on exertion): (2) Hypokalemia: (3) Acute kidney injury: (4) HTN, goal below 130/80: (5) Dyslipidemia, goal LDL below 70: (6) Aortic atherosclerosis: Plan 69-year-old female presenting with concern regarding progressive exertional dyspnea, change in exercise tolerance, uncontrolled hypertension. Recent addition of HCTZ noted with laboratory work on presentation revealing acute on chronic kidney injury, marked hypokalemia. EKG with nonspecific STT wave abnormality, prolonged QTc. High-sensitivity troponin negative x 2. 03/17/25 ECHO Interpretation Summary Left ventricular systolic function is normal. Left Ventricular Ejection Fraction = 55-60%. Grade I diastolic dysfunction, (abnormal relaxation pattern). Trace pulmonic valvular regurgitation. There is mild tricuspid regurgitation. Right ventricular systolic pressure is normal. Hypokalemia - corrected PARRIS - better HTN - better HLD Recommendations: ASA 81mg po daily Statin Coreg Off HCTZ increase fluid intake correct and f/u electrolytes f/u renal function adjust anti-HTN meds keeping systolic BP between 100-140 mmHg and HR between 60 and 100 BPM avoid hypovolemia keep patient euvolemic salt restriction counseling f/u in cardiology clinic post discharge further cardiac w/u as OP as indicated after medical optimization stable from cardiac standpoint please recall if needed will sign off Admission and Anticipated Discharge Date Admission Date: March 15, 2025 Subjective Patient on exam is sitting in bed in NAD; no c/o cp, sob, palpitations, dizziness, LOC, cough, fever, nausea, vomiting, abdominal pain, urinary or bowel problem problems Review of Systems Review of Systems: as per hpi Physical Exam Physical Exam: General: A&Ox3. NAD. HENT: Normocephalic. Atraumatic. Eyes: PER. Conjunctiva pink, sclera clear. Neck: No carotid bruits. No JVD. No HJR. Heart: RRR. Grade I-II/ systolic murmur. No diastolic murmur. No rub. No gallop. PMI is nondisplaced. Lungs: Diminished. Clear to auscultation. No wheeze. Abdomen: +BS. Soft. Nontender. No masses or organomegaly. Extremities: No clubbing, cyanosis, or edema. Limited neurological examination is without focal deficits. Results & Data Vital Signs (Past 12 Hours) Vital Signs Temp Pulse Pulse Resp BP Pulse Ox O2 Del Method 03/17/25 16:02 76 03/17/25 14:54 36.8 C 72 18 141/73 H 95 Room Air 03/17/25 11:45 36.7 C 65 18 144/82 H 98 Room Air 03/17/25 08:00 74 03/17/25 07:39 36.7 C 74 18 145/81 H 95 Room Air Laboratory Results Laboratory Results - last 48 hr 03/15/25 03/16/25 03/17/25 Unknown 05:25 05:36 WBC 11.87 H 9.03 RBC 4.66 4.37 Hgb 13.3 D 12.3 Hct 39.1 37.9 MCV 83.9 86.7 MCH 28.5 28.1 MCHC 34.0 32.5 RDW Std Deviation 37.3 39.1 RDW Coeff of Lakesha 12.4 12.4 Plt Count 255 199 MPV 12.2 12.1 Immature Gran % (Auto) 0.5 0.6 Neut % (Auto) 59.6 58.1 Lymph % (Auto) 27.3 27.5 Arthur % (Auto) 9.4 8.5 Eos % (Auto) 2.4 4.5 Baso % (Auto) 0.8 0.8 Neut # (Auto) 7.08 H 5.25 Lymph # (Auto) 3.24 2.48 Arthur # (Auto) 1.12 H 0.77 H Eos # (Auto) 0.28 0.41 Baso # (Auto) 0.09 0.07 Immature Gran # (Auto) 0.06 0.05 D-Dimer 770 H* Sodium 137 140 Potassium 2.8 L D 3.5 D Chloride 91 L 104 Carbon Dioxide 37 H 30 Anion Gap 9 6 BUN 44 H 32 H Creatinine 1.76 H D 1.29 H D Est Cr Clr Drug Dosing 31.3 42.6 eGFR 30.56 44.37 BUN/Creatinine Ratio 25.0 H 24.8 H Glucose 105 H 95 Calcium 8.6 8.9 Magnesium 3.0 H Troponin I High Sens 10.9 Adenovirus (PCR) Not Detected B. pertussis DNA (PCR) Not Detected B.parapertussis DNA PCR Not Detected C. pneumoniae DNA (PCR) Not Detected Coronavirus OC43 (PCR) Not Detected Coronavirus HKU1 (PCR) Not Detected Coronavirus 229E (PCR) Not Detected SARS-CoV-2 (PCR) Not Detected Coronavirus NL63 (PCR) Not Detected Human Metapneumovir PCR Not Detected Influenza Type A (PCR) Not Detected Influenza Type B (PCR) Not Detected M. pneumoniae (PCR) Not Detected Parainfluenza 1 (PCR) Not Detected Parainfluenza 2 (PCR) Not Detected Parainfluenza 3 (PCR) Not Detected Parainfluenza 4 (PCR) Not Detected RSV (PCR) Not Detected Entero/Rhino (PCR) Not Detected 03/17/25 03/17/25 14:10 15:30 WBC RBC Hgb Hct MCV MCH MCHC RDW Std Deviation RDW Coeff of Lakesha Plt Count MPV Immature Gran % (Auto) Neut % (Auto) Lymph % (Auto) Arthur % (Auto) Eos % (Auto) Baso % (Auto) Neut # (Auto) Lymph # (Auto) Arthur # (Auto) Eos # (Auto) Baso # (Auto) Immature Gran # (Auto) D-Dimer Sodium Cancelled 139 Potassium Cancelled 4.3 D Chloride Cancelled 106 Carbon Dioxide Cancelled 31 Anion Gap Cancelled 2 L BUN Cancelled 27 H Creatinine Cancelled 1.22 H Est Cr Clr Drug Dosing Cancelled 45.1 eGFR Cancelled 47.44 BUN/Creatinine Ratio Cancelled 22.1 H Glucose Cancelled 95 Calcium Cancelled 9.2 Magnesium Troponin I High Sens Adenovirus (PCR) B. pertussis DNA (PCR) B.parapertussis DNA PCR C. pneumoniae DNA (PCR) Coronavirus OC43 (PCR) Coronavirus HKU1 (PCR) Coronavirus 229E (PCR) SARS-CoV-2 (PCR) Coronavirus NL63 (PCR) Human Metapneumovir PCR Influenza Type A (PCR) Influenza Type B (PCR) M. pneumoniae (PCR) Parainfluenza 1 (PCR) Parainfluenza 2 (PCR) Parainfluenza 3 (PCR) Parainfluenza 4 (PCR) RSV (PCR) Entero/Rhino (PCR) Diagnostic Findings Laboratory Results WBC 9.03 K/ul (4.8-10.8) 03/17/25 05:36 RBC 4.37 M/uL (4.20-5.40) 03/17/25 05:36 Hgb 12.3 g/dl (12.0-16.0) 03/17/25 05:36 Hct 37.9 % (37.0-47.0) 03/17/25 05:36 MCV 86.7 fL (80.0-100.0) 03/17/25 05:36 MCH 28.1 pg (25.0-34.0) 03/17/25 05:36 MCHC 32.5 g/dL (32.0-36.0) 03/17/25 05:36 RDW Std Deviation 39.1 fL (36.4-46.3) 03/17/25 05:36 RDW Coeff of Lakesha 12.4 % (11.5-14.5) 03/17/25 05:36 Plt Count 199 K/uL (130-400) 03/17/25 05:36 MPV 12.1 fL (9.4-12.4) 03/17/25 05:36 Immature Gran % (Auto) 0.6 % 03/17/25 05:36 Neut % (Auto) 58.1 % 03/17/25 05:36 Lymph % (Auto) 27.5 % 03/17/25 05:36 Arthur % (Auto) 8.5 % 03/17/25 05:36 Eos % (Auto) 4.5 % 03/17/25 05:36 Baso % (Auto) 0.8 % 03/17/25 05:36 Neut # (Auto) 5.25 K/uL (1.40-6.50) 03/17/25 05:36 Lymph # (Auto) 2.48 K/uL (1.20-3.40) 03/17/25 05:36 Arthur # (Auto) 0.77 K/uL (0.11-0.59) H 03/17/25 05:36 Eos # (Auto) 0.41 K/uL (0.00-0.50) 03/17/25 05:36 Baso # (Auto) 0.07 K/uL (0.00-0.20) 03/17/25 05:36 Immature Gran # (Auto) 0.05 K/uL (0.01-0.20) 03/17/25 05:36 PT 10.4 Seconds (9.0-12.0) 03/15/25 17:00 INR 1.0 (0.9-1.1) 03/15/25 17:00 APTT 22 Seconds (21-31) 03/15/25 17:00 PTT Ratio 0.8 03/15/25 17:00 D-Dimer 770 ug/L FEU (0-500) H* 03/16/25 05:25 Sodium 139 mmol/L (136-145) 03/17/25 15:30 Potassium 4.3 mmol/L (3.5-5.1) D 03/17/25 15:30 Chloride 106 mmol/L (98-107) 03/17/25 15:30 Carbon Dioxide 31 mmol/L (21-32) 03/17/25 15:30 Anion Gap 2 (3-11) L 03/17/25 15:30 BUN 27 mg/dl (6-23) H 03/17/25 15:30 Creatinine 1.22 mg/dl (0.6-1.2) H 03/17/25 15:30 Est Cr Clr Drug Dosing 45.1 ml/min 03/17/25 15:30 eGFR 47.44 03/17/25 15:30 BUN/Creatinine Ratio 22.1 (10-20) H 03/17/25 15:30 Glucose 95 mg/dl (70-99(Fasting)) 03/17/25 15:30 Calcium 9.2 mg/dl (8.6-10.3) 03/17/25 15:30 Magnesium 3.0 mg/dl (1.7-2.4) H 03/16/25 05:25 Total Bilirubin 0.7 mg/dl (0.2-1.0) 03/15/25 17:00 AST 29 U/L (13-39) 03/15/25 17:00 ALT 22 U/L (7-52) 03/15/25 17:00 Alkaline Phosphatase 131 U/L (34-104) H 03/15/25 17:00 Troponin I High Sens 10.9 pg/ml (0-14) 03/16/25 05:25 Total Protein 8.2 gm/dl (6.0-8.3) 03/15/25 17:00 Albumin 4.0 gm/dl (3.4-5.0) 03/15/25 17:00 Globulin 4.2 gm/dl (2.5-4.0) H 03/15/25 17:00 Albumin/Globulin Ratio 1.0 (0.9-2) 03/15/25 17:00 Adenovirus (PCR) Not Detected (NotDetected) 03/15/25 Unknown B. pertussis DNA (PCR) Not Detected (NotDetected) 03/15/25 Unknown B.parapertussis DNA PCR Not Detected (NotDetected) 03/15/25 Unknown C. pneumoniae DNA (PCR) Not Detected (NotDetected) 03/15/25 Unknown Coronavirus OC43 (PCR) Not Detected (NotDetected) 03/15/25 Unknown Coronavirus HKU1 (PCR) Not Detected (NotDetected) 03/15/25 Unknown Coronavirus 229E (PCR) Not Detected (NotDetected) 03/15/25 Unknown SARS-CoV-2 (PCR) Not Detected (NotDetected) 03/15/25 Unknown Coronavirus NL63 (PCR) Not Detected (NotDetected) 03/15/25 Unknown Human Metapneumovir PCR Not Detected (NotDetected) 03/15/25 Unknown Influenza Type A (PCR) Not Detected (NotDetected) 03/15/25 Unknown Influenza Type B (PCR) Not Detected (NotDetected) 03/15/25 Unknown M. pneumoniae (PCR) Not Detected (NotDetected) 03/15/25 Unknown Parainfluenza 1 (PCR) Not Detected (NotDetected) 03/15/25 Unknown Parainfluenza 2 (PCR) Not Detected (NotDetected) 03/15/25 Unknown Parainfluenza 3 (PCR) Not Detected (NotDetected) 03/15/25 Unknown Parainfluenza 4 (PCR) Not Detected (NotDetected) 03/15/25 Unknown RSV (PCR) Not Detected (NotDetected) 03/15/25 Unknown Entero/Rhino (PCR) Not Detected (NotDetected) 03/15/25 Unknown Impressions Chest X-Ray 03/15/25 16:43 Clinical History: Chest pain Technique: A frontal view of the chest was obtained Findings: There are no confluent pulmonary infiltrates. The heart size is within normal limits. No pleural effusion or pneumothorax is seen. There are suspected small calcified pulmonary granulomas No fracture is noted. There is thoracic degenerative disc disease Impression: No active disease Electronically signed by Robinson Patel 03-15-2025 7:08 PM Pulmonary Perfusion Imaging 03/16/25 09:40 NUCLEAR PULMONARY PERFUSION SCAN CLINICAL HISTORY: Dyspnea. Elevated d-dimer. COMPARISON STUDY: Chest x-ray dated 03/15/2025. TECHNIQUE: Nuclear pulmonary perfusion scan is performed following the IV administration of 5.5 mCi of technetium 99m MAA. Images were acquired in the a nterior, posterior, and oblique projections. FINDINGS: A chest x-ray performed 03/15/2025 shows mild bibasilar atelectasis. No airspace consolidation or pleural effusion is seen. Perfusion of the lungs is heterogeneous. No large segmental perfusion defect is identified. A subsegmental defect is questioned in the left upper lung on the posterior view. IMPRESSION: 1. Heterogeneous perfusion with no large segmental perfusion defects identified. 2. A subsegmental peripheral perfusion defect is suggested in the left lung on the posterior view only. If there is strong clinical concern for pulmonary embolus a CT angiogram of the chest should be obtained. ACT 112: Negative or not required by law. Electronically signed by: Peewee Cazares M.D. 03/16/2025 12:54 PM Venous Doppler Study 03/16/25 09:40 ULTRASOUND BILATERAL LOWER EXTREMITY VENOUS CLINICAL HISTORY: Dyspnea. Clinical concern for deep venous thrombosis. Elevated d-dimer. COMPARISON STUDY: No priors TECHNIQUE: Real-time, grayscale, and color Doppler sonography of the deep veins of the right and left lower extremity was performed from the inguinal crease to the calf. Compression and augmentation were utilized. FINDINGS: There is no sonographic evidence of deep venous thrombosis identified in the right or left lower extremity. The common femoral, superficial femoral, and popliteal veins are patent and normally compressible bilaterally. The greater saphenous vein and the profunda femoris vein at the junction with the common femoral vein are clear in both legs. The visualized calf veins are patent bilaterally. A right-sided Marques's cyst measures 3.4 x 0.7 x 2.2 cm. IMPRESSION: 1. There is no sonographic evidence of deep venous thrombosis identified in the right or left lower extremity. 2. Right-sided Marques's cyst. ACT 112: Negative or not required by law. Electronically signed by: Peewee Cazares M.D. 03/16/2025 1:11 PM Medications Administered Home Medications Medication Instructions Recorded Confirmed Last Taken hydrochlorothiazide 25 mg tablet 25 mg PO DAILY 03/15/25 03/15/25 03/14/25 22:00 venlafaxine 37.5 mg 37.5 mg PO DAILY PRN Depression 03/15/25 03/15/25 03/15/25 09:00 capsule,extended release 24 hr venlafaxine 75 mg capsule,extended 75 mg PO DAILY 03/15/25 03/15/25 03/15/25 09:00 release 24 hr aspirin 81 mg tablet,delayed 81 mg PO QAM #30 tabs 03/17/25 Unknown release atorvastatin 40 mg tablet 40 mg PO QAM #30 tabs 03/17/25 Unknown carvedilol 3.125 mg tablet 3.125 mg PO BIDM #60 tabs 03/17/25 Unknown Active Medications Generic Name Dose Route Start Last Admin Trade Name Freq PRN Reason Stop Dose Admin Aspirin 81 mg 03/16/25 09:45 03/17/25 09:05 Aspirin 81 Mg Ectab PO 04/15/25 09:44 81 mg QAM JIL Administration Atorvastatin Calcium 40 mg 03/17/25 09:00 03/17/25 09:05 Atorvastatin 40 Mg Tab PO 04/16/25 08:59 40 mg QAM JIL Administration Carvedilol 3.125 mg 03/16/25 17:00 03/17/25 09:05 Carvedilol 3.125 Mg Tab PO 04/15/25 16:59 3.125 mg BIDM JIL Administration Heparin Sodium (Porcine) 5,000 units 03/15/25 22:00 03/17/25 14:00 Heparin Sod 5,000 Unit/0.5 Ml Vial SQ 04/14/25 21:59 5,000 units Q8 JIL Administration Venlafaxine HCl 75 mg 03/16/25 09:00 03/17/25 09:05 Venlafaxine Hcl Xr 75 Mg Capxr PO 04/15/25 08:59 75 mg DAILY JIL Administration PG Care Time/CCT Total # of Minutes Spent Total Time Spent with Patient: Total time spent is greater than 50% in coordination of care (as documented) at patient's floor/unit and/or counseling patient: Coding Level of Care Code 04649 SUB INP/OBS CARE 50MIN Diagnoses KRAUSE (dyspnea on exertion) R06.09 Hypokalemia E87.6 Acute kidney injury N17.9 HTN, goal below 130/80 I10 Dyslipidemia, goal LDL below 70 E78.5 Aortic atherosclerosis I70.0
--- NOTE | 2025-03-17 19:08 | Hospitalist Progress Note ---
Date of Service March 17, 2025 Assessment & Plan (1) KRAUSE (dyspnea on exertion): Plan: 69-year-old female with past med history significant for dyslipidemia, GERD, CKD stage III, mood disorder presents with dyspnea on exertion. About 6 weeks ago patient was in [place] when she woke up with shortness of breath in the night. Since last 4 weeks she was having dyspnea on exertion. Patient says symptoms were thought to be from elevated blood pressure. End of December she was placed on amlodipine for blood pressure which was increased to 10 mg daily. But patient developed lower extremity edema and amlodipine was stopped and hydrochlorothiazide was prescribed about a couple of weeks ago. Patient had constipation. On Wednesday and Wednesday she used mag citrate. After couple of days of mag citrate she had a bowel movement. Initially there was some blood in the stools but then the stools were okay. In the ER she was found to have PARRIS and hypokalemia, and referred for admission Hypokalemia PARRIS History of CKD stage III Likely secondary from diarrhea and use of hydrochlorothiazide Serum potassium of 2.1 on admission with creatinine of 2.1; baseline creatinine of 1.1. Bicarb of 37 on admission During the hospitalization, patient was given IV fluids with improvement of creatinine, alkalosis and hypokalemia. Her diarrhea resolved. Cardiology was consulted for comanagement; they recommended discharging the patient on aspirin, Lipitor and Coreg. Patient will benefit from addition of ADRIANO inhibitors/ARB's as outpatient if her blood pressure continues to be elevated. Dyspnea on exertion Patient reported history of dyspnea on exertion for several months. Patient underwent VQ scan during the hospitalization which showed possible subsegmental peripheral perfusion defect in posterior view. Venous duplexno DVT CTA chest obtained; results pending Hypertension Holding hydrochlorothiazide started on coreg Hyperlipidemia started on statin-continue at discharge Mood disorder On venlafaxine-continue DVT prophylaxis Heparin subcu Disposition Telemetry Full code Time spent evaluating patient, direct bedside care, chart review, placing orders, interpretation of diagnostic studies, discussion with consultants, patient, and family members, as well as other required patient management activi ties is 50 minutes Please note the above document was generated using voice recognition software. It may contain grammatical, syntax or spelling errors. Any formal questions or concerns about the content, text or information contained within the body of this dictation should be directly addressed to the provider for clarification Please note the above document was generated using voice recognition software. It may contain grammatical, syntax or spelling errors. Any formal questions or concerns about the content, text or information contained within the body of this dictation should be directly addressed to the provider for clarification Admission and Anticipated Discharge Date Admission Date: March 15, 2025 Subjective Patient seen and examined at bedside. Comfortable; not in distress. Denies fever, chills, chest pain, shortness of breath, abdominal pain or urinary symptoms. No significant overnight events Review of Systems Review of Systems: All systems reviewed & are unremarkable except as noted in Subjective Physical Exam Physical Exam: Constitutional: WD/WN, vitals as above, NAD, sitting up in bed, pleasant, conversing easily Respiratory: normal respiratory effort, lungs clear to auscultation, no wheeze, rales, rhonchi. Normal insp/exp effort, no accessory muscle use Cardiovascular: RRR, no murmur, no edema Vessels: no JVD or carotid bruit Chest: normal inspection of chest Abdomen: normal bowel sounds, soft, nontender, no hepatosplenomegaly Musculoskeletal: no cyanosis or clubbing, extremities motor strength 5/5 Skin: no rashes, warm and dry normal turgor Neurologic: PERRL, EOMI, accommodation nl, no face palsy, no dysarthria CN's II- XI intact bilaterally and moves all extremities Psychiatric: A+Ox3, euthymic affect Results & Data Results & Data Vital Signs (Past 12 Hours) Vital Signs Temp Pulse Pulse Resp BP Pulse Ox O2 Del Method 03/17/25 16:02 76 03/17/25 14:54 36.8 C 72 18 141/73 H 95 Room Air 03/17/25 11:45 36.7 C 65 18 144/82 H 98 Room Air 03/17/25 08:00 74 03/17/25 07:39 36.7 C 74 18 145/81 H 95 Room Air
--- NOTE | 2025-03-17 20:05 | CT Scan Report ---
CT pulmonary angiogram with IV contrast History: Chest pain COMPARISON: None TECHNIQUE: CT angiography of the chest was performed without IV contrast followed by IV contrast, including 3D post processing CTA image reconstruction. Dose reduction techniques were achieved by using automatic exposure control and/or adjustment of mA and/or kV according to patient size and/or use of iterative reconstruction technique. FINDINGS: Diagnostic quality: Adequate There is no evidence for pulmonary embolism. The heart is not enlarged. There is no pericardial effusion. There are no abnormally enlarged hilar or mediastinal lymph nodes. The central tracheobronchial tree is clear. The lungs are clear. There is no pleural effusion. Mosaic attenuation of the lungs. Limited visualized upper abdomen. No destructive osseous changes are seen. IMPRESSION: No evidence for pulmonary embolism. Mosaic attenuation of the lungs may be seen with small airway or small vessel disease. Electronically signed by Bennie Ruiz 03-17-2025 8:04 PM
[2025-03-17] MEDS: ACETAMINOPHEN 325 MG TAB PO PRN (22:00)
[2025-03-18 03:08] VITALS: RESP 18; TEMP 98.2
[2025-03-18 07:56] VITALS: BP 124/75; PULSE 71; O2SAT 95
--- NOTE | 2025-03-18 12:08 | Discharge Summary ---
Date of Service March 18, 2025 Admission HPI Per Admitting Provider 69-year-old female with past med history significant for dyslipidemia, GERD, CKD stage III, mood disorder presents with dyspnea on exertion. About 6 weeks ago patient was in [place] when she woke up with shortness of breath in the night. Since last 4 weeks she was having dyspnea on exertion. Patient says symptoms were thought to be from elevated blood pressure. End of December she was placed on amlodipine for blood pressure which was increased to 10 mg daily. But patient developed lower extremity edema and amlodipine was stopped and hydrochlorothiazide was prescribed about a couple of weeks ago. Patient had constipation. On Wednesday and Wednesday she used mag citrate. After couple of days of mag citrate she had a bowel movement. Initially there was some blood in the stools but then the stools were okay. She also drinking a lot of Gatorade and liquids while she was using mag citrate. But as she was feeling weak and tired and continued to have short of breath on exertion she came to the ER today. In the ER she was found to have PARRIS and hypokalemia. Currently denies any headache. No runny nose or sore throat. No fevers. No cough. Denies any chest pain. No nausea. No abdominal pain. Micturating less amounts as per patient. Lower extremity edema has improved. Patient states last night she had palpitations. Patient states lately her hearing is somewhat decreased. Patient states after taking hydrochlorothiazide her blood pressure is improved to 180s as per patient. In the ER her systolic blood pressure in 160s and 140s Admission Exam Per Admitting Provider Head- atraumatic Eyes- PERRL,. Ears. Clear ENT- oropharynx clear Neck- supple, no JVD. Lungs- clear to auscultation no wheezing or crackles Heart- regular rhythm; no murmur, no gallop. Abdomen- normal bowel sounds, soft, nontender, no distension Extremities- no pretibial edema, no erythema seen Neuro- alert, oriented PERRL, no facial palsy; no dysarthria; moves extremities Principal Diagnosis Hypokalemia PARRIS History of CKD stage III Discharge Exam Constitutional: WD/WN, vitals as above, NAD, sitting up in bed, pleasant, conversing easily Respiratory: normal respiratory effort, lungs clear to auscultation, no wheeze, rales, rhonchi. Normal insp/exp effort, no accessory muscle use Cardiovascular: RRR, no murmur, no edema Vessels: no JVD or carotid bruit Chest: normal inspection of chest Abdomen: normal bowel sounds, soft, nontender, no hepatosplenomegaly Musculoskeletal: no cyanosis or clubbing, extremities motor strength 5/5 Skin: no rashes, warm and dry normal turgor Neurologic: PERRL, EOMI, accommodation nl, no face palsy, no dysarthria CN's II- XI intact bilaterally and moves all extremities Psychiatric: A+Ox3, euthymic affect Discharge Data Allergies Allergy/AdvReac Type Severity Reaction Status Date / Time No Known Allergies Allergy Unverified 03/15/25 23:35 Consultations 03/15/25 19:21 ED Decision to Admit Stat 03/16/25 08:00 Consult Cardiology Routine Ordered Studies 03/16/25 09:40 US venous duplex leg [US venous doppler LE BI] Routine 03/17/25 16:29 CT angio chest PE protocol Stat Hospital Course (1) KRAUSE (dyspnea on exertion): 69-year-old female with past med history significant for dyslipidemia, GERD, CKD stage III, mood disorder presents with dyspnea on exertion. About 6 weeks ago patient was in [place] when she woke up with shortness of breath in the night. Since last 4 weeks she was having dyspnea on exertion. Patient says symptoms were thought to be from elevated blood pressure. End of December she was placed on amlodipine for blood pressure which was increased to 10 mg daily. But patient developed lower extremity edema and amlodipine was stopped and hydrochlorothiazide was prescribed about a couple of weeks ago. Patient had constipation. On Wednesday and Wednesday she used mag citrate. After couple of days of mag citrate she had a bowel movement. Initially there was some blood in the stools but then the stools were okay. In the ER she was found to have PARRIS and hypokalemia, and referred for admission Hypokalemia PARRIS History of CKD stage III Likely secondary from diarrhea and use of hydrochlorothiazide Serum potassium of 2.1 on admission with creatinine of 2.1; baseline creatinine of 1.1. Bicarb of 37 on admission During the hospitalization, patient was given IV fluids with improvement of creatinine, alkalosis and hypokalemia. Her diarrhea resolved. Cardiology was consulted for comanagement; they recommended discharging the patient on aspirin, Lipitor and Coreg. Patient will benefit from addition of ADRIANO inhibitors/ARB's as outpatient if her blood pressure continues to be elevated. Dyspnea on exertion Patient reported history of dyspnea on exertion for several months. Patient underwent VQ scan during the hospitalization which showed possible subsegmental peripheral perfusion defect in posterior view. CTA chest was done; did not show any PE. It showed "Mosaic attenuation of the lungs may be seen with small airway or small vessel disease". I discussed this finding with the patient and reviewed the images with her. She was saturating well on room air and did not have any shortness of breath. I discussed following up with her primary care doctor and obtaining pulmonology referral for further evaluation which she agreed. Please note the above document was generated using voice recognition software. It may contain grammatical, syntax or spelling errors. Any formal questions or concerns about the content, text or information contained within the body of this dictation should be directly addressed to the provider for clarification Total Time Total Time Spent Total Time Spent (In Minutes): 34 Total Time Includes: Examination of the Patient, Discharge Planning, Medication Reconciliation, Communication With Other Providers and Other Discharge Plan Discharge Items Patient Disposition: Home - Self-Care Reason For Visit: PARRIS, HYPOKALEMIA Discharge Diagnosis: PARRIS Hypokalemia Condition on Discharge: Fair Activity: Resume your previous activity Non-emergency contact: Primary Care Provider Call non-emergency contact if: you have any medication questions and your symptoms worsen Follow-up/Referrals: Krystal Vang PA-C [Primary Care Provider] - Diet: Regular Addtl Attending Provider Instructions: You were admitted to the hospital due to dehydration. You are given IV fluids with improvement in your kidney function. You were also evaluated by cardiology during the hospitalization. They recommend following medication changes; Start taking aspirin 81 mg Start taking Lipitor 40 mg once a day Start taking Coreg 3.125 twice a day for high blood pressure. Please continue to check your blood pressure at home and make a log of it. You might need adjustment to your medication regimen. The CT of your lung didn't show blood clot. It showed "Mosaic attenuation of the lungs may be seen with small airway or small vessel disease". An appointment will be set up with your PCP, you will need pulmonology referral as outpatient for further work up Pending Studies at Discharge: No Stand-Alone Forms: My [facility], Smoking Cessation Medications and DC Order Prescriptions: New atorvastatin 40 mg Tablet 40 mg PO QAM Qty: 30 0RF aspirin 81 mg Tablet,Delayed Release (Dr/Ec) 81 mg PO QAM Qty: 30 0RF carvedilol 3.125 mg Tablet 3.125 mg PO BIDM Qty: 60 0RF Continued venlafaxine 37.5 mg capsule,extended release 24hr 37.5 mg PO DAILY PRN (Reason: Depression) Patient Comments: 03/15- pt states that she takes med in conjunction with 75mg Effexor as needed per her doctor venlafaxine 75 mg capsule,extended release 24hr 75 mg PO DAILY Discontinued hydrochlorothiazide 25 mg tablet 25 mg PO DAILY Discharge Orders: Discharge Order (Routine); Ordered 03/18/25 Ordered By: Jason Rosas Admission Data Admit Date/Time: 03/15/25 20:38 Attending Provider: Jason Rosas Admit Provider: Clark Izquierdo Primary Care Provider: Krystal Vang Other Providers: Clark Izquierdo; Karina Noyola; Bj Mckeon; Wolf Larios; Sky Varela; Noah Aguayo; Yossi Snider; Bekah Palumbo; Elva Duarte; Allison Patel; Maira Mendoza; Karina Oliva; Herber Navarrete; Paul Fisher; Domonique Guzman; Maryellen Martinez; Lizette Luna; May Koehler; Asaf Izaguirre; Simran Jeff; Sandra Piña; Bennie Velasquez; Rony Bernstein N Other Interventions: Discharge Summary Assessment (RN) Last Done: 03/18/25 08:04
== END 2025-03-18 08:33 | disposition home or self-care (01) | DRG 684 ==
LOC: ED 16:32 → SUATTDRO 20:38 → 4W 20:38